=== PATIENT | female | born 1995 | race African-American/Black ===

== ENCOUNTER 2022-05-24 17:22 | Emergency (ER) | payer OTHER ==
[~2022-05-24] VITALS: Ht 162.6 cm; Wt 50.0 kg
[2022-05-24 17:34] VITALS: BP 135/96
[2022-05-24 18:23] LABS: CLARITY URINE TURBID (CLEAR); COLOR URINE YELLOW (YELLOW); KETONES URINE TRACE (NEGATIVE); LEUKOCYTE ESTERASE URINE 3+ (NEGATIVE); NITRITE URINE POSITIVE (NEGATIVE); OCCULT BLOOD URINE 2+ (NEGATIVE); PH URINE 5.5 (4.5-8.0); PROTEIN URINE 3+ (NEGATIVE); SPECIFIC GRAVITY URINE 1.014 (1.005-1.030); UROBILINOGEN URINE 0.2 E.U./dL (0.2-1.0)
[2022-05-24 18:24] LABS: BASOPHILS % 0.3 % (0.0-2.0); EOSINOPHILS % 0.6 % (0.0-5.0); HEMATOCRIT. 42.6 % (36.0-48.0); HEMOGLOBIN. 14.2 g/dL (12.0-16.0); MEAN CORPUSCULAR HEMOGLOBIN 31.9 pg (28.0-32.0); MEAN CORPUSCULAR VOLUME 95.2 fL (81.0-99.0); MEAN PLATELET VOLUME 9.7 fl (7.4-10.4); NEUTROPHILS % 80.1 % (40.0-76.0); PLATELET 256 x1000/uL (130-400); RED BLOOD CELL COUNT 4.47 mill/uL (4.2-5.4); RED CELL DISTRIBUTION WIDTH 13.8 % (11.6-14.6)
[2022-05-24 18:37] LABS: CHLORIDE 103 mEq/L (98-107)
[2022-05-24 18:39] LABS: HCG SCREEN NEGATIVE
[2022-05-24] MEDS ORDERED: NITR100C MT (20:37)
[2022-05-24] MEDS ORDERED: NITROFURANTOIN MACROCRYSTAL 25MG CAPSULE PO ONE (20:45)
[2022-05-24] MEDS ORDERED: IBUPROFEN 400MG TABLET PO NR (20:45)
[2022-05-24] MEDS ORDERED: NITROFURANTOIN 100MG M/M CAPSULE PO NR (20:45)
== END 2022-05-24 21:50 | disposition home or self-care (01) ==
LOC: ER 17:45
DX: N39.0 Urinary tract infection, site not specified (principal); Z88.0 Allergy status to penicillin
CPT/HCPCS: 36415; 80053; 81003; 84703; 85025; 99283